=== PATIENT | female | born 1960 | race African-American/Black ===

== ENCOUNTER 2016-11-22 01:56 | Emergency (ER) | payer OTHER ==
[2016-11-22] MEDS ORDERED: PHENYLEPHRINE .5% NA SPR 15 ML BTL ONE (04:13)
== END 2016-11-22 05:08 | disposition home or self-care (01) ==
LOC: ER 01:56
DX: R04.0 Epistaxis (principal); R73.9 Hyperglycemia, unspecified; I10 Essential (primary) hypertension
CPT/HCPCS: 36415; 80053; 85025; 85610; 85730